=== PATIENT | female | born 1955 | race American Indian/Alaskan Native ===

== ENCOUNTER 2017-08-19 08:54 | Day surgery (SDC) | payer BC ==
[2017-08-14 09:43] VITALS: BMI 36.6
[2017-08-19] MEDS ORDERED: Propofol 10 mg/ml Inj (20 ML) ONE ×2 (11:39→11:52)
[2017-08-19] MEDS ORDERED: Midazolam 2 MG/2 ML VIAL ONE (11:52)
[2017-08-19 13:33] VITALS: TEMP 96.1
[2017-08-19 13:36] VITALS: PULSE 71; O2SAT 100
[2017-08-19 13:40] VITALS: BP 151/88; RESP 12
== END 2017-08-19 13:24 | disposition home or self-care (01) ==
LOC: C.ENDO 08:54
PROVIDERS: ATTEND Internal Medicine Gastroenterology
DX: D12.0 Benign neoplasm of cecum (principal); R63.4 Abnormal weight loss; K64.8 Other hemorrhoids
CPT/HCPCS: 45388; 82948; 88305; J2250; J2704; J3010

== ENCOUNTER 2017-10-14 06:42 | Day surgery (SDC) | payer BC ==
[2017-10-14 07:08] VITALS: BMI 35.2
[2017-10-14] MEDS ORDERED: Propofol 10 mg/ml Inj (20 ML) ONE (09:24)
--- NOTE | 2017-10-14 09:24 | CP.SDSHP ---
Same Day Surgery H & P - History Proposed Procedure: EGD Pre-Op Diagnosis: weight loss - Previous Medical/Surgical History Cardiac: Hypertension Endocrine/Metabolic: Diabetes - Allergies Allergies: Allergies No Known Allergies Allergy (Verified 08/19/17 10:17) - Physical Exam General Appearance: NAD Vital Signs: Vital Signs 10/14/17 07:07 Temperature 99.3 F Pulse Rate 79 Respiratory 19 Rate Blood Pressure 140/77 O2 Sat by Pulse 97 Oximetry Mental Status: Alert & Oriented x3 Neuro: WNL Heart: WNL Lungs: WNL GI: WNL - {Optional Preform as Required} Abdomen: WNL - Impression Pt. Evaluated Today:Candidate for Anesthesia & Procedure: Yes - Date & Time Date: 10/14/17 Time: 09:24 Short Stay Discharge - Short Stay Discharge Admitting Diagnosis/Reason for Visit: ABNORMAL WEIGHT LOSS Disposition: HOME/ ROUTINE
[2017-10-14] MEDS ORDERED: Lactated Ringer's 500 ML IV SCH (09:45)
[2017-10-14 10:00] VITALS: TEMP 97
[2017-10-14 10:27] VITALS: O2SAT 100
[2017-10-14 12:32] VITALS: BP 130/83; PULSE 67; RESP 15
== END 2017-10-14 10:40 | disposition home or self-care (01) ==
LOC: C.ENDO 06:42
PROVIDERS: ATTEND Internal Medicine Gastroenterology
DX: K29.70 Gastritis, unspecified, without bleeding (principal); R63.4 Abnormal weight loss
CPT/HCPCS: 43239; 82948; 88305; 88342; J2704; J7120

== ENCOUNTER 2018-11-30 10:02 | Outpatient (CLI) | payer MEDICARE, BC | END 2018-11-30 10:03 | disposition home or self-care (01) | LOC: C.CTH 10:02 ==

== ENCOUNTER 2019-02-28 13:51 | Outpatient (CLI) | payer MEDICARE, BC | END 2019-02-28 13:52 | disposition home or self-care (01) | LOC: C.RADIC 13:51 ==